=== PATIENT | female | born 1935 | race Caucasian/White ===

== ENCOUNTER 2016-11-11 07:29 | Day surgery (SDC) | payer OTHER, BC ==
[~2016-11-11] VITALS: Ht 157.5 cm; Wt 76.7 kg
[~2016-11-11 07:29] MED LIST: ADULT LOW DOSE81 M1 PO; ANTIVERT12.5 MG PO; ASPIR-TRIN325 M1 PO; ASPIRIN81 M1 PO; ASPIRIN81 M2 PO; AUGMENTIN500 MG PO; BACTROBAN OINTM22 GM TP; CITRACAL + D C1 EACH PO; CITRACAL W/V1 TABLE1 PO; CYCLOBENZAPRINE5 M1 PO; CYMBALTA60 MG PO; Cipro PO; Coumadin Protocol PO; DYAZIDE, MA1 CAPSULE PO; ESOMEPRAZOLE MA40 MG PO; FENOFIBRATE160 M1 PO; FIBER CHOICE1 TABLET PO; FIBER TAB; FIBER THERAPY0.52 GM PO; FOLIC ACID1 MG PO; GABAPENTIN600 MG PO; GLIPIZIDE ER2.5 MG PO; GLIPIZIDE XL5 MG PO; KLOR-CON 1010 ME1 PO; KLOR-CON 1010 MEQ PO; LASIX40 MG PO; LEVAQUIN500 MG PO; LIPITOR40 MG PO; LOMOTIL TABLET1 EACH PO; LOVENOX80 MG/0.8 SC; METHOTREXATE2.5 MG PO; NEURONTIN300 MG PO; NEXIUM40 MG PO; POTASSIUM CHLO10 MEQ PO; PREDNISONE1 M1 PO; PREDNISONE1 MG PO; PREDNISONE20 MG PO; PREMARIN0.625 MG PO; Protonix PO; RAMIPRIL5 MG PO; RAYOS2 MG PO; TRIAMTERENE-HC1 EACH PO; TYLENOL EXTRA500 MG PO; VERAPAMIL HCL240 M2 PO; VERAPAMIL HCL240 MG PO; VERELAN 240 MG240 MG PO; VITAMIN A25000 UNIT PO; VITAMIN D; VITAMIN D250000 UNIT PO; Vancocin Oral Solution PO; WARFARIN SODIUM3 MG PO; ZEITA PO; ZETIA10 MG PO
[2016-11-11 08:33] LABS: POINT-OF-CARE METER ID UU14174212
== END 2016-11-11 11:05 | disposition home or self-care (01) ==
LOC: PAIN 07:29 → SDC 08:15 → PAIN 08:15
PROVIDERS: Anesthesiology Pain Medicine
PROC: 3E0S33Z Introduction of Anti-inflammatory into Epidural Space, Percutaneous Approach (ICD-10-PCS; principal; 2016-11-11)
DX: M54.16 Radiculopathy, lumbar region (principal); F41.9 Anxiety disorder, unspecified; M25.569 Pain in unspecified knee; M25.559 Pain in unspecified hip; G62.9 Polyneuropathy, unspecified; I10 Essential (primary) hypertension; E78.5 Hyperlipidemia, unspecified; K21.9 Gastro-esophageal reflux disease without esophagitis; M19.90 Unspecified osteoarthritis, unspecified site; M35.3 Polymyalgia rheumatica; M31.6 Other giant cell arteritis; Z86.718 Personal history of other venous thrombosis and embolism; Z86.711 Personal history of pulmonary embolism; Z82.49 Family history of ischemic heart disease and other diseases of the circulatory system; Z82.3 Family history of stroke; Z79.52 Long term (current) use of systemic steroids; Z88.5 Allergy status to narcotic agent; Z88.1 Allergy status to other antibiotic agents; Z88.2 Allergy status to sulfonamides
CPT/HCPCS: 82948; J1030; J2250; J3010

== ENCOUNTER 2016-12-09 08:09 | Day surgery (SDC) | payer OTHER, BC ==
[~2016-12-09] VITALS: Ht 157.5 cm; Wt 77.7 kg
[~2016-12-09 08:09] MED LIST changes: +ALTACE5 MG PO; +CALCIUM CITRAT1 EA18 PO; +CYMBALTA30 MG PO; +FIBER500 MG PO; +MIRALAX17 GM PO; +NEURONTIN600 MG PO; +TYLENOL ARTHRI650 MG PO
== END 2016-12-09 10:13 | disposition home or self-care (01) ==
LOC: PAIN 08:09 → SDC 08:45 → PAIN 10:13
PROC: 3E0S33Z Introduction of Anti-inflammatory into Epidural Space, Percutaneous Approach (ICD-10-PCS; principal; 2016-12-09)
DX: M54.16 Radiculopathy, lumbar region (principal); F41.9 Anxiety disorder, unspecified; M41.9 Scoliosis, unspecified; I10 Essential (primary) hypertension; E78.5 Hyperlipidemia, unspecified; K21.9 Gastro-esophageal reflux disease without esophagitis; M19.90 Unspecified osteoarthritis, unspecified site; M31.5 Giant cell arteritis with polymyalgia rheumatica; E11.9 Type 2 diabetes mellitus without complications; Z86.718 Personal history of other venous thrombosis and embolism; Z86.711 Personal history of pulmonary embolism; Z88.8 Allergy status to other drugs, medicaments and biological substances
CPT/HCPCS: J1100

== ENCOUNTER 2017-05-12 12:52 | Day surgery (SDC) | payer OTHER, BC ==
[~2017-05-12] VITALS: Ht 157.5 cm; Wt 72.6 kg
[~2017-05-12 12:52] MED LIST changes: +ASPIR 8181 M1 PO; -ASPIRIN81 M2 PO; +LORTAB 7.5-3251 EACH PO; +STOOL SOFTENER100 MG PO
[2017-05-12 14:07] LABS: POINT-OF-CARE METER ID UU13113694
== END 2017-05-12 15:20 | disposition home or self-care (01) ==
LOC: PAIN 12:52
PROVIDERS: Anesthesiology Pain Medicine
DX: M47.26 Other spondylosis with radiculopathy, lumbar region (principal); M41.9 Scoliosis, unspecified; M43.16 Spondylolisthesis, lumbar region; K21.0 Gastro-esophageal reflux disease with esophagitis; E78.5 Hyperlipidemia, unspecified; Z86.711 Personal history of pulmonary embolism; G47.33 Obstructive sleep apnea (adult) (pediatric); I10 Essential (primary) hypertension; E11.40 Type 2 diabetes mellitus with diabetic neuropathy, unspecified; M35.3 Polymyalgia rheumatica; I47.1 Supraventricular tachycardia; M31.5 Giant cell arteritis with polymyalgia rheumatica; Z79.82 Long term (current) use of aspirin; Z79.891 Long term (current) use of opiate analgesic; Z88.2 Allergy status to sulfonamides; J45.909 Unspecified asthma, uncomplicated
CPT/HCPCS: 82948; J1030; J3010; S0020

== ENCOUNTER 2017-05-23 10:30 | Day surgery (SDC) | payer OTHER, BC ==
[~2017-05-23] VITALS: Ht 157.5 cm; Wt 72.6 kg
[2017-05-23 11:20] LABS: POINT-OF-CARE METER ID UU13113694
== END 2017-05-23 11:55 | disposition home or self-care (01) ==
LOC: PAIN 10:30 → SDC 11:00 → PAIN 11:55
PROVIDERS: Anesthesiology Pain Medicine
DX: M47.26 Other spondylosis with radiculopathy, lumbar region (principal); F41.9 Anxiety disorder, unspecified; M41.9 Scoliosis, unspecified; M31.5 Giant cell arteritis with polymyalgia rheumatica; I10 Essential (primary) hypertension; E78.5 Hyperlipidemia, unspecified; K21.9 Gastro-esophageal reflux disease without esophagitis; G47.33 Obstructive sleep apnea (adult) (pediatric); E11.40 Type 2 diabetes mellitus with diabetic neuropathy, unspecified; Z86.718 Personal history of other venous thrombosis and embolism; Z86.711 Personal history of pulmonary embolism
CPT/HCPCS: 82948; J1030; J3010; S0020

== ENCOUNTER 2017-08-30 08:51 | Day surgery (SDC) | payer OTHER, BC ==
[~2017-08-30] VITALS: Ht 158.8 cm; Wt 68.2 kg
[2017-08-30 09:20] LABS: POINT-OF-CARE METER ID UU14174212
[2017-08-31] MEDS ORDERED: VERAPAMIL HCL240 MG PO (10:34)
== END 2017-08-30 11:05 | disposition home or self-care (01) ==
LOC: PAIN 08:51 → SDC 09:30 → PAIN 11:05
PROVIDERS: Anesthesiology Pain Medicine
DX: M47.26 Other spondylosis with radiculopathy, lumbar region (principal); M54.5 Low back pain; G89.29 Other chronic pain; I10 Essential (primary) hypertension; K21.0 Gastro-esophageal reflux disease with esophagitis; E78.5 Hyperlipidemia, unspecified; E11.40 Type 2 diabetes mellitus with diabetic neuropathy, unspecified; G47.33 Obstructive sleep apnea (adult) (pediatric); Z88.5 Allergy status to narcotic agent; Z79.82 Long term (current) use of aspirin
CPT/HCPCS: 82948; J1030; J3010; S0020

== ENCOUNTER 2017-09-06 09:24 | Day surgery (SDC) | payer OTHER, BC ==
[~2017-09-06] VITALS: Ht 154.9 cm; Wt 68.0 kg
[2017-09-06 09:56] LABS: POINT-OF-CARE METER ID UU14174212
== END 2017-09-06 10:45 | disposition home or self-care (01) ==
LOC: PAIN 09:24 → SDC 09:30 → PAIN 09:30
PROVIDERS: Anesthesiology Pain Medicine
DX: M47.26 Other spondylosis with radiculopathy, lumbar region (principal); M54.5 Low back pain; G89.29 Other chronic pain; M41.9 Scoliosis, unspecified; I10 Essential (primary) hypertension; K21.9 Gastro-esophageal reflux disease without esophagitis; Z88.2 Allergy status to sulfonamides
CPT/HCPCS: 82948; J1030; J2250; J3010; S0020

== ENCOUNTER 2018-03-01 10:16 | Inpatient (IN) | payer OTHER, BC ==
[~2018-03-01] VITALS: Ht 157.5 cm; Wt 83.1 kg
[2018-03-01 10:54] LABS: BASOPHIL (%) 0.3 % (0-1); EOSINOPHIL (%) 0.1 % (0-5); HEMATOCRIT 33.5 % (36.0-46.0); HEMOGLOBIN 11.4 G/DL (11.9-15.5); IMMATURE GRANULOCYTE (%) 0.3 % (0.0-0.7); LYMPHOCYTE (%) 5.9 % (15-42); LYMPHOCYTE COUNT 0.7 K/uL (1.0-2.8); MCH 32.4 PG (29.0-34.0); MCV 95.2 FL (83-99); MONOCYTE (%) 8.5 % (3-12); NEUTROPHIL (%) 84.9 % (45-76); NEUTROPHIL COUNT 10.1 K/uL (1.8-6.4); RBC DIS.WIDTH-CV 13.5 % (11.8-14.6); RBC DIS.WIDTH-SD 46.3 % (39-53); RED BLOOD COUNT 3.52 M/uL (3.80-5.20); WHITE BLOOD COUNT 11.9 K/uL (4.1-10.2)
[2018-03-01 11:01] LABS: PLATELET COUNT 133 K/uL (156-360)
[2018-03-01 11:03] LABS: INTER. NORMALIZED RATIO 1.2
[2018-03-01 11:06] LABS: CHLORIDE 98 mEq/L (99-109); POTASSIUM 3.8 mEq/L (3.7-5.4); PTT 26.6 SEC (25-37); SODIUM 135 mEq/L (136-147)
[2018-03-01 11:08] LABS: GLUCOSE 140 mg/dL (70-99); TOTAL PROTEIN 5.4 g/dL (6.4-8.3)
[2018-03-01 11:10] LABS: TOTAL BILIRUBIN 1.2 mg/dL (0.0-1.0)
[2018-03-01 11:12] LABS: ALKALINE PHOSPHATASE 80 IU/L (3-129); CREATININE 1.2 mg/dL (0.6-1.3); GFR ESTIMATE (CALCULATED) 46 mL/min/
[2018-03-01 11:13] LABS: UREA NITROGEN (BUN) 30 mg/dL (9-23)
[2018-03-01 11:14] LABS: AST (GOT) 16 IU/L (2-34)
[2018-03-01 11:15] LABS: ALT (GPT) 11 IU/L (3-49); LIPASE 8 U/L (1.0-51.0)
[2018-03-01 11:16] LABS: TROP-I INTERPRETATION NEGATIVE; TROPONIN-I 0.01 ng/mL (0.0-0.30)
[2018-03-01 11:43] LABS: APPEARANCE SL.HAZY ((CLEAR)); BILIRUBIN NEGATIVE; BLOOD SMALL; COLOR YELLOW ((YELLOW)); GLUCOSE (STRIP) NEGATIVE; KETONES NEGATIVE; LEUKOCYTES LARGE; NITRITE POSITIVE; PROTEIN (STRIP) 30; SPECIFIC GRAVITY 1.013 (1.000-1.030); UROBILINOGEN 0.2 MG/DL (0.2-1.0)
[2018-03-01 11:46] LABS: BACTERIA RARE /HPF; EPITHELIAL CELLS RARE /HPF; MUCUS NONE SEEN /LPF; UCUL ADDED? YES; WHITE BLOOD CELLS TNTC /HPF (0-5)
[2018-03-01] MEDS ORDERED: GABAPENTIN600 MG PO (12:47)
[2018-03-01] MEDS ORDERED: DILAUDID2 MG PO (12:53)
[2018-03-01 16:32] VITALS: BP 94/53
[2018-03-01 16:50] VITALS: BP 94/53
[2018-03-01 20:41] VITALS: BP 102/55
[2018-03-01 23:45] VITALS: BP 95/50
[2018-03-02 04:54] VITALS: BP 95/63
[2018-03-02 05:35] LABS: BASOPHIL (%) 0.4 % (0-1); EOSINOPHIL (%) 0.7 % (0-5); EOSINOPHIL COUNT 0.1 K/uL (0-0.3); HEMATOCRIT 31.5 % (36.0-46.0); HEMOGLOBIN 10.2 G/DL (11.9-15.5); IMMATURE GRANULOCYTE (%) 0.5 % (0.0-0.7); LYMPHOCYTE (%) 13.8 % (15-42); LYMPHOCYTE COUNT 1.4 K/uL (1.0-2.8); MCH 31.9 PG (29.0-34.0); MCHC 32.4 G/DL (30.0-36.0); MCV 98.4 FL (83-99); MONOCYTE (%) 9.2 % (3-12); MONOCYTE COUNT 0.9 K/uL (0-0.8); NEUTROPHIL (%) 75.4 % (45-76); NEUTROPHIL COUNT 7.5 K/uL (1.8-6.4); PLATELET COUNT 119 K/uL (156-360); RBC DIS.WIDTH-CV 13.8 % (11.8-14.6)
[2018-03-02 05:53] LABS: CHLORIDE 102 MEQ/L (99-109); GFR ESTIMATE (CALCULATED) 56 mL/min/; GLUCOSE 119 mg/dL (70-99); POTASSIUM 3.4 MEQ/L (3.7-5.4); SODIUM 138 MEQ/L (136-147); UREA NITROGEN (BUN) 21 mg/dL (9-23)
[2018-03-02 08:30] VITALS: BP 103/53
[2018-03-02 11:58] VITALS: BP 104/55
[2018-03-02 15:07] VITALS: BP 112/60
[2018-03-02 19:21] VITALS: BP 108/69
[2018-03-02 23:20] VITALS: BP 99/56
[2018-03-03 03:28] VITALS: BP 124/71
[2018-03-03 07:05] VITALS: BP 125/60
[2018-03-03 07:46] LABS: BASE EXCESS -1.8 mEq/L (-3 to +3); BICARBONATE 21.7 mEq/L (22-26); PCO2 32 mm Hg (35-45); PO2 90 mm Hg (80-100); pH 7.44 (7.35-7.45)
[2018-03-03 07:47] LABS: COMMENTS - BLOOD GASES A+C+; DEVICE NC; O2 FLOW 2 L/MIN; SITE RR; TOTAL RESP RATE 30 resp/min
[2018-03-03 08:12] LABS: TROP-I INTERPRETATION NEGATIVE; TROPONIN-I 0.02 ng/mL (0.0-0.30)
[2018-03-03 08:18] LABS: CHLORIDE 106 MEQ/L (99-109); CREATININE 0.9 MG/DL (0.6-1.3); GFR ESTIMATE (CALCULATED) > 59 mL/min/; GLUCOSE 121 mg/dL (70-99); MAGNESIUM 1.4 mg/dl (1.3-2.7); POTASSIUM 3.6 MEQ/L (3.7-5.4); SODIUM 139 MEQ/L (136-147); UREA NITROGEN (BUN) 14 mg/dL (9-23)
[2018-03-03 11:45] VITALS: BP 121/65
[2018-03-03 16:53] VITALS: BP 107/64
[2018-03-03 19:04] VITALS: BP 101/56
[2018-03-04 06:05] LABS: CHLORIDE 106 MEQ/L (99-109); CREATININE 1.1 MG/DL (0.6-1.3); GFR ESTIMATE (CALCULATED) 50 mL/min/; GLUCOSE 101 mg/dL (70-99); SODIUM 139 MEQ/L (136-147); UREA NITROGEN (BUN) 18 mg/dL (9-23)
[2018-03-04 07:20] VITALS: BP 93/55
[2018-03-04 11:45] VITALS: BP 102/56
[2018-03-04 17:31] VITALS: BP 128/64
[2018-03-04 19:42] VITALS: BP 124/61
[2018-03-05 00:28] VITALS: BP 99/54
[2018-03-05 03:50] VITALS: BP 93/51
[2018-03-05 05:53] LABS: CHLORIDE 105 MEQ/L (99-109); GFR ESTIMATE (CALCULATED) 56 mL/min/; GLUCOSE 114 mg/dL (70-99); POTASSIUM 4.5 MEQ/L (3.7-5.4); SODIUM 138 MEQ/L (136-147); UREA NITROGEN (BUN) 24 mg/dL (9-23)
[2018-03-05 07:10] VITALS: BP 109/62
[2018-03-05] MEDS ORDERED: CEPHALEXIN500 MG PO (09:10)
== END 2018-03-05 13:40 | disposition home or self-care (01) | DRG 872 ==
LOC: EME 10:16 → 4EAST 12:23 → EDOF 12:23 → ENRESERV 12:24 → CANRESERV 13:15 → ENRESERV 13:15 → 4EAST 15:52
PROVIDERS: Emergency Medicine; Hospitalist; Internal Medicine; Internal Medicine Cardiovascular Disease
DX: A41.9 Sepsis, unspecified organism (principal); R09.02 Hypoxemia; E87.6 Hypokalemia; N10 Acute pyelonephritis; M35.3 Polymyalgia rheumatica; E11.9 Type 2 diabetes mellitus without complications; E78.5 Hyperlipidemia, unspecified; I12.9 Hypertensive chronic kidney disease with stage 1 through stage 4 chronic kidney disease, or unspecified chronic kidney disease; R32 Unspecified urinary incontinence; K21.9 Gastro-esophageal reflux disease without esophagitis; I95.9 Hypotension, unspecified; B96.20 Unspecified Escherichia coli [E. coli] as the cause of diseases classified elsewhere; G89.29 Other chronic pain; E11.22 Type 2 diabetes mellitus with diabetic chronic kidney disease; M54.9 Dorsalgia, unspecified; K58.9 Irritable bowel syndrome, unspecified; I25.10 Atherosclerotic heart disease of native coronary artery without angina pectoris; N18.3 Chronic kidney disease, stage 3 (moderate); N18.9 Chronic kidney disease, unspecified; E66.9 Obesity, unspecified; E87.70 Fluid overload, unspecified; I47.1 Supraventricular tachycardia; Z86.711 Personal history of pulmonary embolism; Z87.440 Personal history of urinary (tract) infections; Z79.899 Other long term (current) drug therapy; Z90.49 Acquired absence of other specified parts of digestive tract; Z88.6 Allergy status to analgesic agent; Z88.5 Allergy status to narcotic agent; Z88.2 Allergy status to sulfonamides; Z90.710 Acquired absence of both cervix and uterus; D69.6 Thrombocytopenia, unspecified; J96.01 Acute respiratory failure with hypoxia; R65.20 Severe sepsis without septic shock
CPT/HCPCS: 36600; 71045; 78582; 80048; 80053; 81003; 82803; 82948; 83036; 83605; 83690; 83735; 83880; 84484; 85025; 85379; 85610; 85730; 87040; 87077; 87086; 87186; 87801; 93005; 94799; 99202; 99281; 99285; A9540; A9567; G8987 GO CJ; G8988 GO CH; J0692; J0696; J1650; J1815; J1940; J7030; J7040; J7512; J8610

== ENCOUNTER 2018-05-16 09:43 | Day surgery (SDC) | payer OTHER, BC ==
[~2018-05-16] VITALS: Ht 154.9 cm; Wt 69.5 kg
[~2018-05-16 09:43] MED LIST changes: +CEPHALEXIN500 MG PO; +DICLOFENAC SOD100 GM TP; +DILAUDID2 MG PO; +LIDOPAC1 EACH TP; +LORTAB 5-325 M1 EACH PO; +MAXZIDE 37.5 M1 EACH PO; +PENNSAID2 GM TP
== END 2018-05-16 11:15 | disposition home or self-care (01) ==
LOC: PAIN 09:43 → SDC 10:15 → PAIN 10:15
PROC: 3E0U3BZ Introduction of Anesthetic Agent into Joints, Percutaneous Approach (ICD-10-PCS; principal; 2018-05-16)
PROC: BR161ZZ Fluoroscopy of Lumbar Facet Joint(s) using Low Osmolar Contrast (ICD-10-PCS; principal; 2018-05-16)
PROC: 3E0U33Z Introduction of Anti-inflammatory into Joints, Percutaneous Approach (ICD-10-PCS; principal; 2018-05-16)
DX: M46.1 Sacroiliitis, not elsewhere classified (principal); M47.816 Spondylosis without myelopathy or radiculopathy, lumbar region; G89.29 Other chronic pain; Z79.891 Long term (current) use of opiate analgesic; M35.3 Polymyalgia rheumatica; I10 Essential (primary) hypertension; G47.33 Obstructive sleep apnea (adult) (pediatric); Z86.19 Personal history of other infectious and parasitic diseases; Z85.820 Personal history of malignant melanoma of skin; Z79.82 Long term (current) use of aspirin; Z88.1 Allergy status to other antibiotic agents; Z88.2 Allergy status to sulfonamides; Z88.5 Allergy status to narcotic agent; Z88.8 Allergy status to other drugs, medicaments and biological substances
CPT/HCPCS: J1030; J3010; S0020